=== PATIENT | female | born 1985 | race Caucasian/White ===

== ENCOUNTER → 2017-02-24 | Outpatient (CLI) | payer OTHER ==
[2017-02-24 14:53] LABS: INR 2.2 (0.9-1.1); PROTHROMBIN TIME (PATIENT) 22.3 SECONDS (9.0-12.0)
== END | disposition home or self-care (01) ==
LOC: C.LAB1850 14:21
PROVIDERS: ATTEND Nurse Practitioner
DX: Z51.81 Encounter for therapeutic drug level monitoring (principal); Z79.01 Long term (current) use of anticoagulants; G08 Intracranial and intraspinal phlebitis and thrombophlebitis; D68.51 Activated protein C resistance